=== PATIENT | male | born 1960 | race Caucasian/White ===

== ENCOUNTER 2016-12-23 05:40 | Day surgery (SDC) | payer BC ==
[2016-12-23] MEDS ORDERED: Dextrose 5%-Lactated Ringers 1,000 ML IV SCH (06:30)
[2016-12-23] MEDS ORDERED: fentaNYL 100 MCG/2 ML SDV ONE (07:11)
[2016-12-23] MEDS ORDERED: Midazolam 1 MG/ML 2 ML SDV ONE (07:11)
[2016-12-23] MEDS ORDERED: Propofol 200 MG/20 ML SDV ONE (07:11)
[2016-12-23] MEDS ORDERED: Glycopyrrolate 0.2 MG/ML 2 ML SYRINGE IVPUSH ONE (07:15)
[2016-12-23 08:40] VITALS: BP 151/84
--- NOTE | 2016-12-26 12:55 | OR ---
DATE OF PROCEDURE: 12/23/2016 PREOPERATIVE DIAGNOSIS: Globus sensation. POSTOPERATIVE DIAGNOSES: 1. Gastroesophageal reflux disease with a small hiatal hernia, possible Boston's esophagus, and associated marked inflammation of hypopharynx and larynx. 2. Mild antral gastritis. OPERATIVE PROCEDURE: Esophagogastroduodenoscopy with: 1. Biopsy of esophagogastric junction for histologic evaluation. 2. Biopsies of antrum for CLOtest. ANESTHESIA: IV sedation. INDICATION FOR PROCEDURE: This is a 56-year-old male with a history of some globus-type sensation. It was felt to be possibly related to reflux and we started on omeprazole 40 mg daily over the last month. He says he has not noted much in the way of change in symptoms. Plan is to proceed with upper endoscopy with biopsies as indicated. Potential risks including bleeding and perforation were discussed, and the patient wishes to proceed. DETAILS OF PROCEDURE: The patient was taken to the operating room and placed in a left lateral decubitus position. IV sedation was administered, after which the upper GI endoscope was passed orally through the length of the esophagus and into the stomach with retroflexion view of the fundus, and thereafter through the pyloric channel into the proximal duodenum. The findings included quite strikingly reddened and somewhat edematous hypopharynx and larynx suggestive of chronic reflux. Photo documentation of this was obtained as one passed through the upper esophageal sphincter and that area in the esophageal body were unremarkable. At the distal esophagus, there was a small hiatal hernia and some moderate inflammation with the mucosa being somewhat edematous and friable. There was some upward extension of the gastroesophageal junction mucosal line above the upper gastric folds consistent with possible Boston's esophagus. No gross evidence of neoplasia or plaquing was seen and no stricturing identified. Within the stomach, the patient was noted to have some mild redness in the antrum. Otherwise, pyloric channel and duodenum to the junction of the third and fourth portions were unremarkable. At this point, biopsies were obtained from the antrum and then multiple biopsies from esophagogastric junction. Minimal bleeding from the biopsy sites was seen and the procedure then concluded. Plan will be to see the patient back on 01/04/2017 and that will give him some idea whether or not the omeprazole was helpful. Additionally, the patient has an obstructive breathing pattern with some minimal sedation and he probably should be set up for a sleep study. Jalil Parsons MD /[id number]
== END 2016-12-23 08:42 | disposition home or self-care (01) ==
LOC: JP.SDS 05:40
PROVIDERS: ATTEND Surgery
DX: K22.8 Other specified diseases of esophagus (principal); R23.4 Changes in skin texture; K44.9 Diaphragmatic hernia without obstruction or gangrene; J45.909 Unspecified asthma, uncomplicated; E66.9 Obesity, unspecified; Z88.8 Allergy status to other drugs, medicaments and biological substances
CPT/HCPCS: 43239; 87081; J2250; J2704; J3010; J7042; 88305; 88312

== ENCOUNTER → 2018-01-01 | Day surgery (SDC) | payer BC ==
[~2018-01-01] MED LIST: Lactated Ringers 1,000 ML IV SCH; Midazolam 1 MG/ML 2 ML SDV ONE; Propofol 200 MG/20 ML SDV ONE; fentaNYL 100 MCG/2 ML SDV ONE
[2018-01-01 09:57] VITALS: BP 141/90
--- NOTE | 2018-01-01 16:08 | OR ---
DATE OF PROCEDURE: 01/01/2018 PREOPERATIVE DIAGNOSIS: History of adenomatous colon polyps. POSTOPERATIVE DIAGNOSES: 1. Unremarkable colonoscopy. 2. History of adenomatous colon polyps. PROCEDURE: Colonoscopy to the cecum. SURGEON: Warner Andrade MD. ANESTHESIA: IV anesthesia with monitored anesthesia care. INDICATION: This 57-year-old white male is here for a colonoscopy because of a history of adenomatous colon polyps. His last colonoscopic exam was done three years ago. I counseled him for the procedure, including risks and alternatives, and he gave his informed consent to proceed. DESCRIPTION OF PROCEDURE: The patient was placed in the left lateral decubitus position. IV anesthesia was administered by the Anesthesia Service. Time-out was held. A rectal exam was performed, which was unremarkable. The flexible video Olympus colonoscope was introduced through his anus, up his rectum, out his colon, and all the way to the cecum. Once the cecum was reached, the scope was slowly withdrawn, examining the mucosa throughout. No mucosal abnormalities were noted. The scope was retroflexed in the rectum with the distal rectum appearing unremarkable. The scope was straightened and removed. He tolerated the procedure well. Warner Andrade MD /[id number]
== END ==
LOC: JP.SDS 06:49
PROVIDERS: ATTEND Surgery
DX: Z12.11 Encounter for screening for malignant neoplasm of colon (principal); K21.9 Gastro-esophageal reflux disease without esophagitis; Z86.010 Personal history of colon polyps; Z88.6 Allergy status to analgesic agent
CPT/HCPCS: 45378; J2250; J2704; J3010; J7120

== ENCOUNTER 2020-04-07 08:02 | Day surgery (SDC) | payer BC ==
[~2020-04-07 08:02] MED LIST changes: +Acetaminophen 500 MG Tab PO ONE; +Bupivacaine 0.5% 50 ML MDV ONE; +Bupivacaine 0.5%/EPINEPHrine 1:200,000 50 ML MDV ONE; -Lactated Ringers 1,000 ML IV SCH; +Lidocaine 1% with EPINEPHrine 1:100,000 50 ML MDV ONE
[2020-04-07] MEDS ORDERED: Dextrose 5%-Lactated Ringers 1,000 ML IV SCH (08:30)
[2020-04-07] MEDS ORDERED: ceFAZolin 2 GM in Premix Bag 1 BAG IV ONE (08:30)
[2020-04-07] MEDS ORDERED: Albuterol 8 GM Inhaler INH ONE (08:30)
[2020-04-07] MEDS ORDERED: Ketorolac 60 MG/2 ML SDV ONE (08:54)
[2020-04-07] MEDS ORDERED: Propofol 200 MG/20 ML SDV ONE ×3 (08:55→09:28)
[2020-04-07] MEDS ORDERED: fentaNYL 100 MCG/2 ML SDV ONE (08:58)
[2020-04-07] MEDS ORDERED: Midazolam 1 MG/ML 2 ML SDV ONE (08:58)
[2020-04-07] MEDS ORDERED: Ondansetron 4 MG/2 ML SDV ONE (09:24)
[2020-04-07] MEDS ORDERED: Dexamethasone 4 MG/ML SDV ONE (09:24)
[2020-04-07] MEDS ORDERED: fentaNYL 100 MCG/2 ML SDV IVPUSH ONE (10:27)
[2020-04-07] MEDS ORDERED: hydrOXYzine HCL 100 MG/2 ML SDV IM ONE (10:27)
[2020-04-07] MEDS ORDERED: Acetaminophen/oxyCODONE 325-5 MG Tab PO ONE (11:03)
[2020-04-07 11:34] VITALS: BP 159/90; PULSE 62
--- NOTE | 2020-04-13 12:27 | OR ---
DATE OF PROCEDURE: 04/07/2020 SURGEON: Jalil Parsons MD PREOPERATIVE DIAGNOSIS: Right inguinal hernia. POSTOPERATIVE DIAGNOSES: 1. Right (direct) inguinal hernia. 2. Ilioinguinal and iliohypogastric nerves at risk for scar entrapment. 3. Varicocele. OPERATIVE PROCEDURE: Right inguinal exploration with: 1. Repair of direct right inguinal hernia with mesh plug technique (80561). 2. Excision of portion of right ilioinguinal nerve (28973). 3. Excision of portion of right iliohypogastric nerve (06848). 4. Varicocele excision (98135). ANESTHESIA: Local plus IV sedation. INDICATION FOR PROCEDURE: A 59-year-old male presenting with some chronic pain in the right inguinal area that upon examination showed what appeared to be a direct inguinal hernia. This did not appear to be incarcerated. The plan is to proceed with right inguinal exploration and repair of the hernia with mesh plug technique that will often divide some nerves in the area that would be otherwise entrapped by scar resulting in chronic pain that will often divide that is gone over. Otherwise, potential risks including bleeding, infection, injury to the viscera, problems with mesh becoming infected or the hernia recurring, as well as possible chronic pain following the procedure were all gone over and the patient wishes to proceed. DETAILS OF PROCEDURE: The patient was taken to the operating room and placed in a supine position. IV sedation was administered, after which the abdomen and groin areas were prepped and draped. The right inguinal area was anesthetized with 1% lidocaine mixed with Marcaine and a standard right inguinal incision was made and carried down through the skin and subcutaneous tissue and through the external oblique aponeurosis. Subaponeurotic flaps were then raised superiorly and inferiorly. Cord structures were mobilized upward. The patient was noted to have some dilated veins in the base of the cord consistent with a varicocele. These were at this point then ligated using some 4-0 Vicryl ties so the remaining ends also can be cauterized. The cord structures were then definitively dissected out. The patient was noted to have no large indirect component of the hernia, did have a direct hernia which was then treated with extra large mesh plug. The transversalis fascia over the direct hernia was then incised, following dissection underneath the conjoint tendon and down toward Homero's ligament. The extra large mesh plug was then placed into the defect and then affixed to the Homero's ligament with some titanium tacking screws to the underside of the conjoint tendon medially, superiorly, and laterally with horizontal mattress sutures of 0 Vicryl stitch. At that point, we satisfactorily placed the free edge of the conjoint tendon that was then sutured to the shelving portion of the inguinal ligament with a running 0 Vicryl stitch up to the level of the internal ring. The ilioinguinal and iliohypogastric nerves were both coursing through the field that the flat portion of the mesh plug system would be placed. Given this, the nerves were divided and excised out to the far lateral aspect of the incision. The flat portion of mesh plug system was then placed and sutured lateral to the cord structures with 3-0 Vicryl stitch and affixed to pubic tubercle with titanium tacking screws. External oblique aponeurosis was then approximated over this including the cord structures and subcutaneous tissue packed with some 0 Vicryl stitch and the skin with 4-0 Vicryl subcuticular stitch. Dressing was applied. The patient was taken to the recovery room in satisfactory condition. There were no evident complications. Physician technical support assistant, Nidhi Mccormack, played an essential role in assisting in this case, helping to position the patient, retract structures as needed, as well as suturing and cutting sutures when indicated. Her presence improved patient safety and decreased operative time. Jalil Parsons MD /[id number]
== END 2020-04-07 11:45 | disposition home or self-care (01) ==
LOC: JP.SDS 08:02
PROVIDERS: ATTEND Surgery
DX: K40.90 Unilateral inguinal hernia, without obstruction or gangrene, not specified as recurrent (principal); I86.1 Scrotal varices
CPT/HCPCS: 55540; 64772; 88302; 94640; A9270; C1713; C1781; J0690; J1100; J1885; J2020; J2250; J2405; J2704; J3010; J3410; J3490; J7121

== ENCOUNTER 2021-05-17 06:47 | Day surgery (SDC) | payer BC ==
[2021-05-17] MEDS ORDERED: fentaNYL 100 MCG/2 ML SDV ONE (07:26)
[2021-05-17] MEDS ORDERED: Propofol 200 MG/20 ML SDV ONE (07:26)
[2021-05-17] MEDS ORDERED: Midazolam 1 MG/ML 2 ML SDV ONE (07:26)
[2021-05-17] MEDS: Sodium Chloride 0.9% 1,000 ML IV SCH (07:29)
[2021-05-17 10:09] VITALS: BP 135/81; PULSE 68
--- NOTE | 2021-05-17 10:13 | OR ---
DATE OF PROCEDURE: 05/17/2021 SURGEON: Asa Degroot MD PROCEDURE: Colonoscopy. FINDINGS: 1. Transverse colon polyp, approximately 5 mm, completely removed using cold biopsy forceps. 2. Colon prep with approximately 85% to 90% of the luminal surface could be seen. 3. No definitive etiology for change in stool caliber. RISKS: Risks, benefits, alternatives, and limitations including, but not limited to infection, bleeding, perforation, false positives, false negatives were explained to the patient and he wished to proceed. PREOPERATIVE DIAGNOSIS: Change in stool caliber. POSTOPERATIVE DIAGNOSIS: Change in stool caliber. PROCEDURE IN DETAIL: The patient was placed in left lateral decubitus position. Digital rectal exam was performed without abnormality except for a small but prominent external hemorrhoid. Scope was introduced and advanced atraumatically to the ileocecal valve. A photo was taken of the appendiceal orifice. Scope was brought back to the ascending, transverse, descending colon, and retroflexed. No evidence of old or new blood. No masses. No polyps. No narrowing. No stricture. No diverticulosis. The patient did have somewhat tortuous sigmoid colon. No abnormalities on retroflexion. No etiology for the change in bowel habits. Greater than 8 minutes was spent removing the scope. The patient tolerated the procedure well. Asa Degroot MD /[id number]
== END 2021-05-17 10:40 | disposition home or self-care (01) ==
LOC: JP.SDS 06:47
PROVIDERS: ATTEND Surgery
DX: D12.3 Benign neoplasm of transverse colon (principal); K64.4 Residual hemorrhoidal skin tags; J45.909 Unspecified asthma, uncomplicated; E66.9 Obesity, unspecified; Z85.038 Personal history of other malignant neoplasm of large intestine; Z88.8 Allergy status to other drugs, medicaments and biological substances; Z68.36 Body mass index [BMI] 36.0-36.9, adult
CPT/HCPCS: 88305; J2250; J2704; J3010; J7030